=== PATIENT | male | born 1930 | race Caucasian/White ===

== ENCOUNTER 2017-08-07 19:54 | Emergency (ER) | payer MEDICARE, BC ==
--- NOTE | 2017-08-07 20:34 | EDM.PDOC ---
ED HPI GENERAL MEDICAL PROBLEM - General Chief Complaint: Back Pain or Injury Stated Complaint: BACK PAIN Time Seen by Provider: 08/07/17 20:05 Source of Information: Reports: Patient History Limitations: Reports: No Limitations - History of Present Illness INITIAL COMMENTS - FREE TEXT/NARRATIVE: Pt is from [facility] here on fishing trip. He travelled yesterday with his friends and went to bed. When he woke up in the morning, he has been having vague pain in between the shoulder blades. But he has difficulty extending his neck, which he could do before. No weakness in the arms. No tingling or numbness in the arms. No difficulty with swallowing or breathing. Onset: Today Onset Date: 08/07/17 Onset Time: 06:00 Location: Reports: Neck Quality: Reports: Ache Severity: Moderate Improves with: Reports: None Worsens with: Reports: None Associated Symptoms: Denies: Confusion, Chest Pain, Cough, Diaphoresis, Fever/ Chills, Headaches, Loss of Appetite, Malaise, Nausea/Vomiting, Rash, Seizure, Shortness of Breath, Syncope Back Pain Pain Score (Numeric/FACES): 7 - Related Data Allergies Allergy/AdvReac Type Severity Reaction Status Date / Time levofloxacin [From Levaquin] Allergy Nausea and Verified 08/07/17 20:07 Vomiting Home Meds: Home Meds Alendronate Sodium [Fosamax] 70 mg PO WEEKLY 08/07/17 [History] Carbidopa/Levodopa [Sinemet 25-100 mg Tablet] 1 each PO QID 08/07/17 [History] Cholecalciferol (Vitamin D3) [Vitamin D3] 2,000 unit PO DAILY 08/07/17 [History] Cyanocobalamin (Vitamin B12) [Vitamin B12] 1,000 mcg PO DAILY 08/07/17 [History] Digoxin [Lanoxin] 125 mcg PO DAILY 08/07/17 [History] Furosemide [Lasix] 40 mg PO DAILY 08/07/17 [History] Warfarin Sodium [Coumadin] 7.5 mg PO DAILY 08/07/17 [History] Social & Family History - Tobacco Use Smoking Status *Q: Never Smoker - Recreational Drug Use Recreational Drug Use: No ED ROS GENERAL - Review of Systems Review Of Systems: See Below Constitutional: Denies: Fever, Chills HEENT: Denies: Throat Pain, Throat Swelling, Vertigo Respiratory: Denies: Cough, Sputum Cardiovascular: Denies: Chest Pain, Lightheadedness GI/Abdominal: Denies: Abdominal Pain, Nausea, Vomiting Musculoskeletal: Reports: Neck Pain, Back Pain. Denies: Shoulder Pain, Arm Pain , Hand Pain, Muscle Pain, Muscle Stiffness Skin: Denies: Bruising, Pruritis, Rash Neurological: Denies: Confusion, Dizziness, Headache, Syncope, Tingling, Difficulty Walking, Change in Speech, Gait Disturbance Psychiatric: Denies: Agitation, Anxiety ED EXAM, GENERAL - Physical Exam Exam: See Below Exam Limited By: No Limitations General Appearance: Alert, WD/WN, No Apparent Distress Eye Exam: Bilateral Eye: EOMI, PERRL Ears: Normal External Exam, Normal Canal, Hearing Grossly Normal, Normal TMs Ear Exam: Bilateral Ear: Auricle Normal, Canal Normal, TM normal Nose: Normal Inspection, Normal Mucosa, No Blood Throat/Mouth: Normal Inspection, Normal Lips, Normal Teeth, Normal Gums, Normal Oropharynx, Normal Voice, No Airway Compromise Head: Atraumatic, Normocephalic Neck: Limited Range of Motion (pt has good flexion but very limited extension of the neck. Also he has good lateral rotation of the neck.), Tender Lateral ( around the base and nape of the neck posteriorly. most of the tenderness is in the upper medial borders of the scapula), Other (Pt does keep his neck partially flexion and forward.No neurological defecits in the upper extremities) . No: Tender Midline Respiratory/Chest: No Respiratory Distress, Lungs Clear, Normal Breath Sounds, No Accessory Muscle Use, Chest Non-Tender Cardiovascular: Normal Peripheral Pulses, Regular Rate, Rhythm, No Edema, No Gallop, No JVD, No Murmur, No Rub Back Exam: Normal Inspection. No: Muscle Spasm, Paraspinal Tenderness, Vertebral Tenderness Extremities: Normal Inspection, Normal Range of Motion, Non-Tender, Normal Capillary Refill, No Pedal Edema Skin Exam: Warm, Intact Course - Vital Signs Text/Narrative:: Pt's C-spine xray does show anteriolisthesis of the C4 over C5. On clinical exam most of the tenderness is in the posterior nape of the neck and the upper medial border of the scapula.The pain basically gets worse with motion or extension of the neck and relieves with resting the neck in mid-flexed position. No neurological deficit. His CT neck shows severe degenerative changes. No acute fracture seen. Pt has been placed on soft collar to help support the neck. Advised to place pillow under the neck to support the neck in mid-flexed position. Followup with primary care provider. Tylenol 500mg 4 times daily as needed for pain.Avoid jolting or sudden bumps while driving. Last Recorded V/S: Last Vital Signs Temp 97.6 F 08/07/17 20:10 Pulse 66 08/07/17 20:10 Resp 18 08/07/17 20:10 BP 108/61 08/07/17 20:10 Pulse Ox 95 08/07/17 20:10 - Orders/Labs/Meds Orders: Active Orders 24 hr Category Date Time Status Cervical Spine 2V or 3V [CR] Stat Exams 08/07/17 20:30 Taken Cervical Spine wo Cont [CT] Stat Exams 08/07/17 21:00 Taken Departure - Departure Time of Disposition: 22:00 Disposition: Home, Self-Care 01 Condition: Fair Clinical Impression: Anterolisthesis - Discharge Information Instructions: Cervical Subluxation Forms: ED Department Discharge Additional Instructions: Pt's C-spine xray does show anteriolisthesis of the C4 over C5. On clinical exam most of the tenderness is in the posterior nape of the neck and the upper medial border of the scapula.The pain basically gets worse with motion or extension of the neck and relieves with resting the neck in mid-flexed position. No neurological deficit. His CT neck shows severe degenerative changes. No acute fracture seen. Pt has been placed on soft collar to help support the neck. Advised to place pillow under the neck to support the neck in mid-flexed position. Followup with primary care provider. Tylenol 500mg 4 times daily as needed for pain.Avoid jolting or sudden bumps while driving. - Problem List & Annotations (1) Anterolisthesis SNOMED Code(s): 747167495 Code(s): M43.10 - SPONDYLOLISTHESIS, SITE UNSPECIFIED Status: Acute - Problem List Review Problem List Initiated/Reviewed/Updated: Yes - My Orders Last 24 Hours: My Active Orders 08/07/17 20:30 Cervical Spine 2V or 3V [CR] Stat 08/07/17 21:00 Cervical Spine wo Cont [CT] Stat - Assessment/Plan Last 24 Hours: My Active Orders 08/07/17 20:30 Cervical Spine 2V or 3V [CR] Stat 08/07/17 21:00 Cervical Spine wo Cont [CT] Stat Assessment:: Mild Anterolisthesis of C4-5 Plan: Pt's C-spine xray does show anteriolisthesis of the C4 over C5. On clinical exam most of the tenderness is in the posterior nape of the neck and the upper medial border of the scapula.The pain basically gets worse with motion or extension of the neck and relieves with resting the neck in mid-flexed position. No neurological deficit. His CT neck shows severe degenerative changes. No acute fracture seen. Pt has been placed on soft collar to help support the neck. Advised to place pillow under the neck to support the neck in mid-flexed position. Followup with primary care provider. Tylenol 500mg 4 times daily as needed for pain.Avoid jolting or sudden bumps while driving.
--- NOTE | 2017-08-08 23:41 | CR ---
CLINICAL DATA: Difficulty extending the neck. CERVICAL SPINE: No priors. There is diffuse osteopenia. The vertebral bodies are of average height. There is 4.5 mm anterolisthesis of C4 on C5. There are disc bone spurs throughout the cervical spine with disc space narrowing diffusely. There is facet joint hypertrophy throughout the cervical spine. The soft tissues are unremarkable. No acute abnormalities. Job: [id number] [facility]TD[facility]
--- NOTE | 2017-08-08 23:45 | CT ---
CLINICAL DATA: Neck stiffness and pain. CERVICAL SPINE CT: Multislice axial acquisition was performed. No acute fracture or dislocation. There is 4.5 mm anterolisthesis of C4 on C5. There is degenerative disc disease throughout the cervical spine with disc space narrowing diffusely. There are degenerative changes involving the atlantoaxial articulation. There is facet joint hypertrophy at multiple levels. There is fusion of the facet joints at the C3-4 level on the left. The soft tissues are unremarkable. There is a 4 mm spiculated density in the left apex. Chest CT is recommended to further evaluate this patient. No other significant findings. Job: [id number] [facility]
== END 2017-08-07 22:10 | disposition home or self-care (01) ==
LOC: LB.ED 19:54
DX: M43.12 Spondylolisthesis, cervical region (principal); Z79.01 Long term (current) use of anticoagulants; Z79.899 Other long term (current) drug therapy; Z88.1 Allergy status to other antibiotic agents
CPT/HCPCS: 72040; 72125; 99283; 99284-25